=== PATIENT | male | born 2000 | race Hispanic/Latino ===

== ENCOUNTER 2021-12-20 14:29 | Emergency (ER) | payer OTHER ==
[~2021-12-20] VITALS: Ht 172.7 cm; Wt 70.3 kg
== END 2021-12-20 18:04 | disposition home or self-care (01) ==
LOC: ED 14:29
DX: S61.212A Laceration without foreign body of right middle finger without damage to nail, initial encounter (principal); Z23 Encounter for immunization; W27.0XXA Contact with workbench tool, initial encounter
CPT/HCPCS: 12001; 73140; 90471; 90715; 99283-25

== ENCOUNTER 2024-02-22 12:27 | Emergency (ER) | payer OTHER ==
[~2024-02-22] VITALS: Ht 172.7 cm; Wt 79.6 kg
[2024-02-22] MEDS ORDERED: HYDROCODON-ACE1 EA10 PO (15:49)
[2024-02-22] MEDS ORDERED: CEPHALEXIN500 M1 PO (15:49)
[2024-02-22] MEDS ORDERED: CEPHALEXIN MONOHYDRATE 500 MG CAP PO ONE (16:00)
[2024-02-22] MEDS ORDERED: HYDROCODONE/ACETA 5/325 TAB PO ONE (16:00)
[2024-02-22 16:30] VITALS: BP 127/60
== END 2024-02-22 16:30 | disposition home or self-care (01) ==
LOC: ED 12:27
DX: S61.441A Puncture wound with foreign body of right hand, initial encounter (principal); W34.09XA Accidental discharge from other specified firearms, initial encounter
CPT/HCPCS: 10120; 73130; 99283-25; A9270